=== PATIENT | male | born 1985 | race Caucasian/White ===

== ENCOUNTER 2019-01-02 14:49 | Emergency (ER) | payer BC, MEDICAID ==
[2019-01-02] MEDS ORDERED: ONDANSETRON HCL INJ/PF 4 MG/2 ML SDV IV ONE (15:58)
--- NOTE | 2019-01-02 15:58 | ER Document Report ---
ED Medical Screen (RME) - General Chief Complaint: Headache Stated Complaint: HEADACHE Time Seen by Provider: 01/02/19 15:49 Primary Care Provider: DAVID HOPPER [Primary Care Provider] - Follow up as needed Mode of Arrival: Ambulatory Information source: Patient Notes: Patient is a 33-year-old male presented to the emergency department chief complaint of headache that is been lasting for approximately 2 weeks. Patient does report history of headaches but is never had one last this long. Patient describes this as a sudden onset headache that reached max intensity within a few minutes. Patient does report headache has been ongoing for 2 weeks. He did state that one time it did resolve and that was after seeing an urgent care provider and given a dose of Toradol. Headache resolved at that time for approximately 10 to 12 hours and then resumed with full force. Patient reports photophobia, denies any neck pain, patient has full range of motion of his neck and denies any fevers. Exam: Patient alert, oriented and in no acute distress. No nuchal rigidity noted. Patient spouse is at bedside, states that he is not acting per his usual, states he has not been to work in 2 weeks and states that he is never sick like this. I have greeted and performed a rapid initial assessment of this patient. A comprehensive ED assessment and evaluation of the patient, analysis of test results and completion of the medical decision making process will be conducted by additional ED providers. I have specifically instructed the patient or family members with the patient to immediately return to any nursing staff should anything change in the patient's condition or with their chief complaint. This medical record was dictated with voice recognizing software. There may be grammatical, syntax errors that are unintended. TRAVEL OUTSIDE OF THE [place] IN LAST 30 DAYS: No - Related Data Allergies/Adverse Reactions: No Known Allergies Allergy (Unverified 01/02/19 14:50) Past Medical History Renal/ Medical History: Denies: Hx Peritoneal Dialysis Physical Exam - Vital signs Vitals: Temp Pulse Resp BP Pulse Ox 98.4 F 64 16 167/102 H 95 01/02/19 14:55 01/02/19 14:55 01/02/19 14:55 01/02/19 14:55 01/02/19 14:55 Course - Vital Signs Vital signs: Temp Pulse Resp BP Pulse Ox 98.4 F 64 16 167/102 H 95 01/02/19 14:55 01/02/19 14:55 01/02/19 14:55 01/02/19 14:55 01/02/19 14:55 Doctor's Discharge - Discharge Referrals: RUCHI,NO [Primary Care Provider] - Follow up as needed
[2019-01-02 16:13] LABS: ABSOLUTE BASOPHILS # (AUTO) 0.1 10^3/uL (0.0-0.2); ABSOLUTE LYMPHOCYTES (AUTO) 0.8 10^3/uL (0.5-4.7); ABSOLUTE MONOCYTES (AUTO) 0.4 10^3/uL (0.1-1.4); ABSOLUTE NEUT (AUTO) 11.2 10^3/uL (1.7-8.2); BASOPHILS % (AUTO) 0.4 % (0-2); HEMATOCRIT 51.2 % (37.9-51.0); HEMOGLOBIN 17.3 g/dL (13.5-17.0); LYMPHOCYTES % (AUTO) 6.7 % (13-45); MEAN CORPUSCULAR HGB CONC 33.7 g/dL (32.0-36.0); MEAN CORPUSCULAR VOLUME 83 fl (80-97); MONOCYTES % (AUTO) 3.3 % (3-13); PLATELET COUNT 376 10^3/uL (150-450); RED BLOOD COUNT 6.18 10^6/uL (4.35-5.55); RED CELL DISTRIBUTION WIDTH 14.7 % (11.5-14.0); SEGMENTED NEUTROPHILS % (AUTO) 89.6 % (42-78); TOTAL CELLS COUNTED % (AUTO) 100 %; WHITE BLOOD COUNT 12.6 10^3/uL (4.0-10.5)
--- NOTE | 2019-01-02 16:26 | ER Document Report ---
Doctor's Note Notes: 01/02/19 16:24 Radiologist called with acute findings on patient's head CT, there is a large mass causing a midline shift and cerebral edema, formal report not available yet, patient upgraded to [facility] 1, charge nurse made aware of need for immediate bed placement.
--- NOTE | 2019-01-02 16:34 | RADIOLOGY REPORT (SQ) ---
EXAM DESCRIPTION: CT HEAD WITHOUT COMPLETED DATE/TIME: 01/02/2019 4:17 pm REASON FOR STUDY: MAE x2 weeks, worst ever COMPARISON: None. TECHNIQUE: Axial images acquired through the brain without intravenous contrast. Images reviewed wi th bone, brain and subdural windows. Additional sagittal and coronal reconstructions were generated. Images stored on PACS. All CT scanners at this facility use dose modulation, iterative reconstruction, and/or weight based d osing when appropriate to reduce radiation dose to as low as reasonably achievable (ALARA). [facility]: Dose Right [facility]: CareDose [facility]: Dose Right [facility]: Teradose 4D [facility]: [employer] RADIATION DOSE: CT Rad equipment meets quality standard of care and radiation dose reduction techniq ues were employed. CTDIvol: 53.2 mGy. DLP: 991 mGy-cm. mGy. LIMITATIONS: None. FINDINGS: In the right frontal brain parenchyma, an 8 cm AP x 6.5 cm transverse by 5.5 cm craniocaud ad low attenuation cystic mass is present with surrounding vasogenic edema. There is significant loc al mass effect with effacement of the right frontal horn lateral ventricle. There is 1.5 cm right to left subfalcine shift at the level of the foramina of [place], and enlargement of the temporal horn le ft lateral ventricle worrisome for entrapment. Effacement of the basilar cisterns around the brainst em on axial images 12-17. No superimposed acute hemorrhage. Findings are worrisome for a large righ t frontal primary brain tumor. This report was called as a critical finding to Stacie Mckeon in the e mergency room, 1622 hours 01/02/2019. VENTRICLES: Effacement of the right frontal horn lateral ventricle, dilatation of the left lateral ve ntricle temporal horn worrisome for entrapment due to a right to left subfalcine shift. CEREBRUM: 8 x 6.5 x 5.5 cm mass in the right frontal lobe with right to left shift and significant lo ash mass effect. No acute superimposed hemorrhage. No CT evidence of acute large territory infarct. CEREBELLUM: No masses. No hemorrhage. No alteration of density. No evidence for acute infarction. EXTRAAXIAL SPACES: Effacement of the basilar cisterns around the brainstem ORBITS AND GLOBE: No intra- or extraconal masses. Normal contour of globe without masses. CALVARIUM: Old right frontal craniotomy PARANASAL SINUSES: No fluid or mucosal thickening. SOFT TISSUES: No mass or hematoma. OTHER: No other significant finding. IMPRESSION: Large right frontal brain mass with significant local mass effect and early entrapment o f the left lateral ventricle. Findings discussed with emergency room attending as above EVIDENCE OF ACUTE STROKE: NO. COMMENT: Pertinent findings on the imaging study reported as a CRITICAL RESULT to STACIE napier t16:22 on 01/02/2019. Category of Critical Result: Entrapment left lateral ventricle, significant right to left subfalcine shift, large right frontal brain tumor Quality ID # [id number]: Final reports with documentation of one or more dose reduction techniques (e.g., Au tomated exposure control, adjustment of the mA and/or kV according to patient size, use of iterative reconstruction technique) TECHNICAL DOCUMENTATION: JOB ID: [id number] [employer]- All Rights Reserved Reading location - IP/workstation name: [email or web address]
[2019-01-02 16:35] LABS: ALANINE AMINOTRANSFERASE 110 U/L (21-72); ALKALINE PHOSPHATASE 88 U/L (38-126); ANION GAP 11 (5-19); ASPARTATE AMINO TRANSFERASE 46 U/L (17-59); BILIRUBIN,DIRECT 0.3 mg/dL (0.0-0.4); BILIRUBIN,TOTAL 0.9 mg/dL (0.2-1.3); BLOOD UREA NITROGEN 15 mg/dL (7-20); CALCIUM 10.2 mg/dL (8.4-10.2); CARBON DIOXIDE 32 mmol/L (22-30); CHLORIDE 101 mmol/L (98-107); GLUCOSE 132 mg/dL (75-110); SODIUM 143.5 mmol/L (137-145); TOTAL PROTEIN 7.9 g/dL (6.3-8.2)
--- NOTE | 2019-01-02 17:28 | ER Document Report ---
ED General - General Mode of Arrival: Ambulatory TRAVEL OUTSIDE OF THE [place] IN LAST 30 DAYS: No <INDIO GARCES - Last Filed: 01/02/19 20:22> <SULEIMAN REDMOND - Last Filed: 01/02/19 23:19> <DANE ETIENNE - Last Filed: 01/03/19 23:37> - General Chief Complaint: Headache Stated Complaint: HEADACHE Time Seen by Provider: 01/02/19 15:49 Primary Care Provider: DAVID HOPPER [NO LOCAL MD] - Follow up as needed Notes: 33-year-old male with remote history of a brain surgery when he was 1 years old from a 25 foot fall presents to the emergency department with chief complaint of severe headache and vomiting that is gotten progressively worse over the last 2 weeks. Patient also has associated photophobia but no vision changes or visual cuts. He said the vomiting has been intermittent but he had one episode yesterday and one episode today and the intensity of his headache increased prompting him to seek treatment. No fevers or chills, no neck stiffness, no acute shortness of breath or chest pain, no abdominal pain. No associated nausea with the vomiting. Radiologist called the provider in triage with a CT head result that did show a large 8 cm frontal mass and patient was brought directly back to the main emergency department and I immediately saw patient up on his arrival. (INDIO GARCES) - Related Data Allergies/Adverse Reactions: No Known Allergies Allergy (Unverified 01/02/19 14:50) Past Medical History - General Information source: Patient - Social History Smoking Status: Unknown if Ever Smoked Patient has suicidal ideation: No Patient has homicidal ideation: No Renal/ Medical History: Denies: Hx Peritoneal Dialysis <INDIO GARCES - Last Filed: 01/02/19 20:22> - General Information source: Patient, [facility] Records - Social History Smoking Status: Never Smoker Frequency of alcohol use: None Drug Abuse: None Lives with: Family Family History: Reviewed & Not Pertinent Patient has suicidal ideation: No Patient has homicidal ideation: No <DANE ETIENNE - Last Filed: 01/03/19 23:37> Review of Systems - Review of Systems Constitutional: See HPI EENT: See HPI Cardiovascular: See HPI Respiratory: See HPI Gastrointestinal: See HPI Genitourinary: No symptoms reported Male Genitourinary: No symptoms reported Musculoskeletal: No symptoms reported Skin: No symptoms reported Hematologic/Lymphatic: No symptoms reported Neurological/Psychological: See HPI <INDIO GARCES - Last Filed: 01/02/19 20:22> Physical Exam <INDIO GARCES - Last Filed: 01/02/19 20:22> - Vital signs Vitals: Temp Pulse Resp BP Pulse Ox 98.4 F 64 16 167/102 H 95 01/02/19 14:55 01/02/19 14:55 01/02/19 14:55 01/02/19 14:55 01/02/19 14:55 - Notes Notes: PHYSICAL EXAMINATION: Reviewed vital signs and charting by RN GENERAL: Alert, interacts well. No acute distress. HEAD: Normocephalic, atraumatic. EYES: Pupils equal and round. Extraocular movements intact. ENT: Oral mucosa moist, tongue midline. NECK: Full range of motion. Trachea midline. LUNGS: Clear to auscultation bilaterally, no wheezes, rales, or rhonchi. No respiratory distress. HEART: Regular rate and rhythm. No murmur ABDOMEN: soft, non-tender. No distention. Bowel sounds present EXTREMITIES: Moves all 4 extremities spontaneously. No edema, No cyanosis. NEURO: A &O X 3, normal speech, normal gailt, PERRL, EOMI, SILT, follows commands in all 4 extremities, no gross abnormalities of cranial nerves, no focal neuro deficits, no pronator drift, [id number] testing normal, rapid alternating hand movements normal, [id number] normal, home visitor strength 5/5 bilateral, 5/5 strength in both proximal and distal upper and lower extremities. No visual field cuts PSYCH: Normal affect, normal mood. SKIN: Warm, dry, normal turgor. No rashes or lesions noted. (INDIO GARCES) Course - Laboratory Result Diagrams: 01/02/19 16:01 01/02/19 16:01 <INDIO GARCES - Last Filed: 01/02/19 20:22> - Laboratory Result Diagrams: 01/02/19 16:01 01/02/19 16:01 <SULEIMAN REDMOND - Last Filed: 01/02/19 23:19> - Laboratory Result Diagrams: 01/02/19 16:01 01/02/19 16:01 <DANE ETIENNE - Last Filed: 01/03/19 23:37> - Re-evaluation Re-evalutation: 01/02/19 20:18 Late entry: I immediately assessed the patient upon being moved to the main emergency department. He was alert and oriented x4, ambulating without difficulty. Patient had a completely normal neurologic exam, no focal deficits, no visual field cuts, no behavioral changes. CT head showed a large frontal mass with midline shift and associated vasogenic edema. [facility] and talked to Jad at the transfer center. He made contact with the neurosurgeon, Dr. Bubba Yi, who accepted the patient for transfer. Images have been pushed over and a face sheet has been sent there as well. Patient has a bed assigned and we are awaiting transport. Warm bedside handoff conducted-ABHI Redmond. Patient is currently stable. He has received Fioricet for headache. (INDIO GARCES) 01/02/19 23:19 Patient reevaluated at bedside again. He had been complaining of a mild discomfort in the head on previous evaluation by me, he was given dexamethasone because of headache and intracranial mass, after this his headache completely resolved. He has no current complaints. He is sitting up in the bed and well appearing. No significant change from prior. Stable for transport. (SULEIMAN REDMOND) - Vital Signs Vital signs: Temp Pulse Resp BP Pulse Ox 98.3 F 64 25 H 155/89 H 93 01/02/19 22:42 01/02/19 14:55 01/02/19 20:00 01/02/19 23:01 01/02/19 23:01 - Laboratory Laboratory results interpreted by me: 01/02/19 01/02/19 16:01 16:01 WBC 12.6 H RBC 6.18 H Hgb 17.3 H Hct 51.2 H RDW 14.7 H Seg Neutrophils % 89.6 H Lymphocytes % 6.7 L Absolute Neutrophils 11.2 H Carbon Dioxide 32 H Glucose 132 H ALT 110 H Discharge <INDIO GARCES - Last Filed: 01/02/19 20:22> <SULEIMAN REDMOND - Last Filed: 01/02/19 23:19> <DANE ETIENNE - Last Filed: 01/03/19 23:37> - Discharge Clinical Impression: Frontal mass of brain, Vasogenic cerebral edema Condition: Stable Disposition: Sophia Referrals: LOCALMD,NO [NO LOCAL MD] - Follow up as needed
[2019-01-02] MEDS ORDERED: LEVETIRACETAM 1000 MG/NACL-ISO 1,000 MG/100 ML RTUPB IV ONE (18:12)
[2019-01-02] MEDS ORDERED: BUTALB/ACETAMINOPHEN/CAFFEINE 1 TAB EACH PO ONE (19:04)
[2019-01-02] MEDS ORDERED: DEXAMETHASONE SOD PHOS INJ 10 MG/1 ML VIAL IV ONE (20:58)
[2019-01-02 23:06] VITALS: BP 155/89
== END 2019-01-02 23:25 | disposition short-term general hospital (02) ==
LOC: ER 14:49
DX: G93.9 Disorder of brain, unspecified (principal); G93.6 Cerebral edema; R51 Headache; R11.11 Vomiting without nausea; H53.149 Visual discomfort, unspecified
CPT/HCPCS: 99285; 96375; 96365; 36415; 85025; 80053; 70450; J3490; J2405; J1100; J1953

== ENCOUNTER 2019-01-18 08:31 | Observation (INO) | payer BC ==
[2019-01-18 08:51] LABS: ABSOLUTE BASOPHILS # (AUTO) 0.1 10^3/uL (0.0-0.2); ABSOLUTE EOSINOPHILS # (AUTO) 0.1 10^3/uL (0.0-0.6); ABSOLUTE LYMPHOCYTES (AUTO) 3.1 10^3/uL (0.5-4.7); ABSOLUTE MONOCYTES (AUTO) 1.5 10^3/uL (0.1-1.4); ABSOLUTE NEUT (AUTO) 12.2 10^3/uL (1.7-8.2); BASOPHILS % (AUTO) 0.7 % (0-2); EOSINOPHILS % (AUTO) 0.6 % (0-6); HEMATOCRIT 45.1 % (37.9-51.0); HEMOGLOBIN 15.1 g/dL (13.5-17.0); LYMPHOCYTES % (AUTO) 18.1 % (13-45); MEAN CORPUSCULAR HEMOGLOBIN 28.3 pg (27.0-33.4); MEAN CORPUSCULAR HGB CONC 33.5 g/dL (32.0-36.0); MEAN CORPUSCULAR VOLUME 85 fl (80-97); MONOCYTES % (AUTO) 9.1 % (3-13); PLATELET COUNT 345 10^3/uL (150-450); RED BLOOD COUNT 5.33 10^6/uL (4.35-5.55); RED CELL DISTRIBUTION WIDTH 14.9 % (11.5-14.0); SEGMENTED NEUTROPHILS % (AUTO) 71.5 % (42-78); TOTAL CELLS COUNTED % (AUTO) 100 %; WHITE BLOOD COUNT 17.1 10^3/uL (4.0-10.5)
--- NOTE | 2019-01-18 09:06 | RADIOLOGY REPORT (SQ) ---
EXAM DESCRIPTION: CHEST SINGLE VIEW COMPLETED DATE/TIME: 01/18/2019 8:54 am REASON FOR STUDY: SOB COMPARISON: None. EXAM PARAMETERS: NUMBER OF VIEWS: One view. TECHNIQUE: Single frontal radiographic view of the chest acquired. RADIATION DOSE: NA LIMITATIONS: None. FINDINGS: LUNGS AND PLEURA: Faint linear densities in the lung bases. Elevated left hemidiaphragm. MEDIASTINUM AND HILAR STRUCTURES: No masses. Contour normal. HEART AND VASCULAR STRUCTURES: Heart normal in size. Normal vasculature. BONES: No acute findings. HARDWARE: None in the chest. OTHER: No other significant finding. IMPRESSION: ELEVATED LEFT HEMIDIAPHRAGM. BASILAR ATELECTASIS/SCARRING. TECHNICAL DOCUMENTATION: JOB ID: [id number] [employer]- All Rights Reserved Reading location - IP/workstation name: [email or web address]
[2019-01-18 09:12] LABS: ALANINE AMINOTRANSFERASE 118 U/L (21-72); ALBUMIN 4.1 g/dL (3.5-5.0); ALKALINE PHOSPHATASE 92 U/L (38-126); ANION GAP 9 (5-19); ASPARTATE AMINO TRANSFERASE 52 U/L (17-59); BILIRUBIN,DIRECT 0.3 mg/dL (0.0-0.4); BLOOD UREA NITROGEN 15 mg/dL (7-20); CALCIUM 9.6 mg/dL (8.4-10.2); CARBON DIOXIDE 29 mmol/L (22-30); CHLORIDE 100 mmol/L (98-107); GLUCOSE 111 mg/dL (75-110); POTASSIUM 4.5 mmol/L (3.6-5.0); TOTAL PROTEIN 6.9 g/dL (6.3-8.2)
[2019-01-18] MEDS ORDERED: NORMAL SALINE 1000 ML 1,000 ML IV ONE (09:15)
--- NOTE | 2019-01-18 09:55 | ER Document Report ---
Entered by TUAN TORRES SCRIBE 01/18/19 0855 Acting as scribe for:STEVE ANDERSON MD ED Respiratory Problem - General Chief Complaint: Shortness Of Breath Stated Complaint: SHORTNESS OF BREATH Time Seen by Provider: 01/18/19 08:45 Primary Care Provider: ITA MONCADA MD [Primary Care Provider] - Follow up as needed Mode of Arrival: Medic Information source: Patient, [facility] Records Notes: Patient is a 33-year-old male with medical history significant for large right frontal brain mass which was removed on 01/04/2019 at [facility] who presents to the emergency department today with complaints of shortness of breath. Patient states last night he developed pain in the area of his left shoulder blade. Patient states he attributed this pain to the way he was sitting yesterday evening, stating he was sitting oddly on a pillow. Patient states he took Tylenol last night and went to bed and at that time he had no shortness of breath yet. Patient states that this morning when he woke up he was very short of breath and he continues to have this left sided scapular pain. Patient states the pain is exacerbated with deep breathing. Patient states that he has had a cough that has lingered for over 1 month but it is not changed. TRAVEL OUTSIDE OF THE [place] IN LAST 30 DAYS: No - Related Data Allergies/Adverse Reactions: No Known Allergies Allergy (Unverified 01/02/19 14:50) Past Medical History - General Information source: Patient, [facility] Records - Social History Smoking Status: Never Smoker Cigarette use (# per day): No Frequency of alcohol use: None Drug Abuse: None Lives with: Family Family History: Reviewed & Not Pertinent Past Surgical History: Reports: Hx Neurologic Surgery - Removal of large right frontal brain mass on 01/04/2019 Review of Systems - Review of Systems Constitutional: No symptoms reported EENT: No symptoms reported Cardiovascular: No symptoms reported Respiratory: See HPI, Cough, Short of breath, Other - pain in the area of the left scapula Gastrointestinal: No symptoms reported Genitourinary: No symptoms reported Male Genitourinary: No symptoms reported Musculoskeletal: No symptoms reported Skin: No symptoms reported Hematologic/Lymphatic: No symptoms reported Neurological/Psychological: No symptoms reported -: Yes All other systems reviewed and negative Physical Exam - Vital signs Vitals: Resp Pulse Ox 28 H 96 01/18/19 08:37 01/18/19 08:37 - Notes Notes: Physical Exam: General: Alert, appears short of breath. HEENT: Transverse coronal scalp surgery site has sutures in place from tumor removal on 01/02/2019, there is swelling surrounding wound which is expected. PERRL. Extraocular movements intact. Oropharynx clear. Neck: Supple. Non-tender. Respiratory: Tachypneic. Hypoxic with an oxygen saturation in the lower 90s on 2L via nasal cannula. Clear and equal breath sounds bilaterally. Cardiovascular: Tachycardic into the 140s, regular rhythm. Abdominal: Normal Inspection. Non-tender. No distension. Normal Bowel Sounds. Back: Non-tender. Palpation of the left scapular area does not reproduce the patient's pain, states the pain feels deeper inside which is consistent with pleuritic pain. Deep inhalation does exacerbate the pain. Extremities: Moves all four extremities. Upper extremities: Normal inspection. Normal ROM. Lower extremities: Normal inspection. No edema. Normal ROM. Neurological: Normal cognition. AAOx4. Normal speech. Psychological: Normal affect. Normal Mood. Skin: Diaphoretic and very warm to the touch. Normal color. Course - Vital Signs Vital signs: Temp Pulse Resp BP Pulse Ox 23 H 149/133 H 92 01/18/19 08:45 01/18/19 08:45 01/18/19 08:47 - Laboratory Result Diagrams: 01/18/19 08:40 01/18/19 08:40 Laboratory results interpreted by me: 01/18/19 01/18/19 01/18/19 08:40 08:40 08:40 WBC 17.1 H RDW 14.9 H Absolute Neutrophils 12.2 H Absolute Monocytes 1.5 H D-Dimer 0.93 H Carbonic Acid ABG pCO2 ABG pO2 ABG HCO3 ABG Total CO2 ABG O2 Saturation Glucose 111 H ALT 118 H 01/18/19 09:45 WBC RDW Absolute Neutrophils Absolute Monocytes D-Dimer Carbonic Acid 1.38 H ABG pCO2 45.8 H ABG pO2 64.2 L ABG HCO3 26.5 H ABG Total CO2 27.9 H ABG O2 Saturation 92.0 L Glucose ALT - Diagnostic Test Radiology reviewed: Image reviewed, Reports reviewed - Chest x-ray shows elevated left hemidiaphragm with basilar atelectasis versus scarring. CTA chest shows scattered atelectasis in the lung bases with suboptimal Tory effort. No pulmonary emboli, no definitely pneumonias, no heart failure. - EKG Interpretation by Me EKG shows normal: Sinus rhythm, [place], Intervals, QRS Complexes, ST-T Waves Rate: Tachycardia - 136 - Consults Dr. Garsia Time consulted: 11:08 Consulted provider: will come to ER Critical Care Note - Critical Care Note Total time excluding time spent on procedures (mins): 45 Discharge - Discharge Clinical Impression: Hypoxia, Tachycardia, Diaphoresis Dyspnea Qualifiers: Dyspnea type: shortness of breath Qualified Code(s): R06.02 - Shortness of lizz ath Pneumonia Qualifiers: Pneumonia type: due to unspecified organism Laterality: bilateral Lung location: lower lobe of lung Qualified Code(s): J18.1 - Lobar pneumonia, uns pecified organism Leukocytosis Qualifiers: Leukocytosis type: unspecified Qualified Code(s): D72.829 - Elevated white blood cell count, unspecified Condition: Fair Disposition: ADMITTED INPATIENT Admitting Provider: Ady (Hospitalist) Unit Admitted: IMCU Referrals: ITA MONCADA MD [Primary Care Provider] - Follow up as needed Scribe Attestation: 01/18/19 09:28 I personally performed the services described in the documentation, reviewed and edited the documentation which was dictated to the scribe in my presence, and it accurately records my words and actions. I personally performed the services described in the documentation, reviewed and edited the documentation which was dictated to the scribe in my presence, and it accurately records my words and actions.
[2019-01-18 10:05] LABS: ARTERIAL BLOOD BASE EXCESS 0.8 mmol/L; ARTERIAL BLOOD H2CO3 1.38 mmol/L (1.05-1.35); ARTERIAL BLOOD HCO3 26.5 mmol/L (20-24); ARTERIAL BLOOD PCO2 45.8 mmHg (35-45); ARTERIAL BLOOD PH 7.38 (7.35-7.45); ARTERIAL BLOOD PO2 64.2 mmHg (80-100); ARTERIAL BLOOD TOTAL CO2 27.9 mmol/L (23-27)
[2019-01-18 10:07] LABS: ARTERIAL BLOOD FIO2 3L
--- NOTE | 2019-01-18 10:31 | RADIOLOGY REPORT (SQ) ---
EXAM DESCRIPTION: CTA CHEST COMPLETED DATE/TIME: 01/18/2019 10:08 am REASON FOR STUDY: Postop, malignancy, acute dyspneahypoxia COMPARISON: None. TECHNIQUE: CT scan of the chest performed using helical scanning technique with dynamic intravenous contrast injection. Images reviewed with lung, soft tissue and bone windows. Reconstructed coronal and sagittal MPR images reviewed. Additional 3 dimensional post-processing performed to develop Maximal Intensity Projection images ([place] P). All images stored on PACS. All CT scanners at this facility use dose modulation, iterative reconstruction, and/or weight based d osing when appropriate to reduce radiation dose to as low as reasonably achievable (ALARA). [facility]: Dose Right [facility]: CareDose [facility]: Dose Right [facility]: Teradose 4D [facility]: [employer] CONTRAST TYPE AND DOSE: contrast/concentration: Isovue 350.00 mg/ml; Total Contrast Delivered: 75.0 ml; Total Saline Delivered: 80.0 ml Contrast bolus adequate for pulmonary arteries and aorta. RENAL FUNCTION: BUN 15 creatinine 0.1. RADIATION DOSE: CT Rad equipment meets quality standard of care and radiation dose reduction techniq ues were employed. CTDIvol: 19.8 - 37.5 mGy. DLP: 1244 mGy-cm. . LIMITATIONS: Mild motion artifact. FINDINGS: LUNGS AND PLEURA: Low lung volumes. Scattered linear markings in the lung bases No masses , infiltrates, or pneumothorax. No pleural effusions or pleural calcifications. AORTA AND GREAT VESSELS: No aneurysm. No dissection. HEART: No pericardial effusion. No significant coronary artery calcifications. PULMONARY ARTERIES: No emboli visualized in the main pulmonary arteries or the segmental branches. HILAR AND MEDIASTINAL STRUCTURES: No identified masses or abnormal nodes. HARDWARE: None in the chest. UPPER ABDOMEN: No significant findings. Limited exam. THYROID AND OTHER SOFT TISSUES: No masses. No adenopathy. BONES: No acute or significant finding. 3D MIPS: Confirm above findings. OTHER: No other significant finding. IMPRESSION: 1. NORMAL CTA OF THE CHEST. NO PULMONARY EMBOLI. 2. SUBOPTIMAL INSPIRATORY EFFORT. SCATTERED ATELECTASIS IN THE LUNG BASES. COMMENT: Quality ID # [id number]: Final reports with documentation of one or more dose reduction techniques (e.g., Automated exposure control, adjustment of the mA and/or kV according to patient size, use of iterative reconstruction technique) TECHNICAL DOCUMENTATION: JOB ID: [id number] [employer]- All Rights Reserved Reading location - IP/workstation name: [email or web address]
[2019-01-18] MEDS ORDERED: LEVOFLOXACIN 750 MG/D5W RTU 750 MG/150 ML RTUPB IV ONE (10:59)
[2019-01-18 11:48] LABS: APPEARANCE,URINE CLEAR; BILIRUBIN,URINE NEGATIVE (NEGATIVE); COLOR,URINE YELLOW; GLUCOSE, URINE NEGATIVE (NEGATIVE); KETONES,URINE NEGATIVE (NEGATIVE); LEUKOCYTE ESTERASE,URINE NEGATIVE (NEGATIVE); NITRITE,URINE NEGATIVE (NEGATIVE); PROTEIN,URINE NEGATIVE (NEGATIVE); URINE SPECIFIC GRAVITY 1.035; UROBILINOGEN,URINE NEGATIVE mg/dL (<2.0)
[2019-01-18] MEDS ORDERED: ACETAMINOPHEN 325 MG TABLET PO PRN (13:38)
[2019-01-18] MEDS ORDERED: PROMETHAZINE HCL INJ 25 MG/1 ML VIAL IV PRN (13:38)
[2019-01-18] MEDS ORDERED: TEMAZEPAM 15 MG CAPSULE PO PRN (13:38)
[2019-01-18] MEDS ORDERED: OXYCODONE-ACETAMINOPHEN 5-325 MG TABLET PO PRN (13:38)
[2019-01-18] MEDS ORDERED: ONDANSETRON HCL INJ/PF 4 MG/2 ML SDV IV PRN (13:38)
--- NOTE | 2019-01-18 14:14 | PDOC H&P ---
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 She woke up with left-sided shoulder pain which she attributed to his sleeping position, took some Tylenol, went back to bed, also noted to have small shortness of breath in the morning. Shoulder pain is sharp, comes on randomly. No alleviating or exacerbating factor identified. Denies any headache, numbness tingling, vision changes, nausea vomiting, chest pain, abdominal pain, constipation or any urinary symptoms. CTA negative for any acute abnormalities. ABG positive for mild hypoxemia. CBC positive for leukocytosis. Social History Lives with: Family Smoking Status: Never Smoker - Advance Directive Resuscitation Status: Full Code Family History Family History: Reviewed & Not Pertinent Parental Family History Reviewed: Yes Children Family History Reviewed: Yes Sibling(s) Family History Reviewed.: Yes Medication/Allergy Home Medications: Benzonatate [Tessalon Perle 100 mg Capsule] 100 mg PO Q8HP PRN 01/18/19 Cetirizine HCl [Zyrtec] 10 mg PO DAILY 01/18/19 Dexamethasone 4 mg PO DAILY 01/18/19 Famotidine [Pepcid 20 mg Tablet] 20 mg PO BID 01/18/19 Fluticasone Propionate [Flonase Nasal [place] 50 Mcg/[place] 16 gm] 2 sprays NASL DAILY 01/18/19 Lisinopril [Prinivil 10 mg Tablet] 10 mg PO DAILY 01/18/19 Sennosides [Senna] 17.2 mg PO DAILY 01/18/19 Allergies/Adverse Reactions: No Known Allergies Allergy (Unverified 01/02/19 14:50) Review of Systems Review of Systems: as per hpi Physical Exam Vital Signs: Temp Pulse Resp BP Pulse Ox 98.5 F 114 H 20 153/93 H 93 01/18/19 13:38 01/18/19 13:38 01/18/19 13:38 01/18/19 13:38 01/18/19 13:38 General appearance: PRESENT: no acute distress, obese, well-developed, well- nourished Head exam: PRESENT: atraumatic, normocephalic, other - Horizontal extensive postsurgical wound with shaila in place. Mild swelling at the surgical area, however no erythema, tenderness, or any sign of infection. Eye exam: PRESENT: conjunctiva pink, EOMI, PERRLA. ABSENT: scleral icterus Ear exam: PRESENT: normal external ear exam Mouth exam: PRESENT: moist, tongue midline Neck exam: ABSENT: carotid bruit, JVD, lymphadenopathy, thyromegaly Adult Head Front/Back Image: 1 - surgical wound with shaila Respiratory exam: PRESENT: clear to auscultation tracy. ABSENT: rales, rhonchi, wheezes Cardiovascular exam: PRESENT: RRR. ABSENT: diastolic murmur, rubs, systolic m urmur Pulses: PRESENT: normal dorsalis pedis pul Vascular exam: PRESENT: normal capillary refill GI/Abdominal exam: PRESENT: normal bowel sounds, soft. ABSENT: distended, guarding, mass, organolmegaly, rebound, tenderness Rectal exam: PRESENT: deferred Extremities exam: PRESENT: full ROM. ABSENT: calf tenderness, clubbing, pedal edema Neurological exam: PRESENT: alert, awake, oriented to person, oriented to place, oriented to time, oriented to situation, CN II-XII grossly intact, other. ABSENT: motor sensory deficit Psychiatric exam: PRESENT: appropriate affect, normal mood. ABSENT: homicidal ideation, suicidal ideation Skin exam: PRESENT: dry, intact, warm. ABSENT: cyanosis, rash Results Laboratory Results: 01/18/19 08:40 01/18/19 08:40 01/18/19 01/18/19 01/18/19 08:40 08:40 09:06 WBC 17.1 H RBC 5.33 Hgb 15.1 Hct 45.1 MCV 85 MCH 28.3 MCHC 33.5 RDW 14.9 H Plt Count 345 Seg Neutrophils % 71.5 Lymphocytes % 18.1 Monocytes % 9.1 Eosinophils % 0.6 Basophils % 0.7 Absolute Neutrophils 12.2 H Absolute Lymphocytes 3.1 Absolute Monocytes 1.5 H Absolute Eosinophils 0.1 Absolute Basophils 0.1 Carbonic Acid Cancelled HCO3/H2CO3 Ratio Cancelled ABG pH Cancelled ABG pCO2 Cancelled ABG pO2 Cancelled ABG HCO3 Cancelled ABG O2 Saturation Cancelled ABG Base Excess Cancelled FiO2 Cancelled Sodium 138.2 Potassium 4.5 Chloride 100 Carbon Dioxide 29 Anion Gap 9 BUN 15 Creatinine 0.81 Est GFR ( Amer) > 60 Est GFR (Non-Af Amer) > 60 Glucose 111 H Calcium 9.6 Total Bilirubin 1.0 AST 52 ALT 118 H Alkaline Phosphatase 92 Total Protein 6.9 Albumin 4.1 Urine Color Urine Appearance Urine pH Ur Specific [place] Urine Protein Urine Glucose (UA) Urine Ketones Urine Blood Urine Nitrite Ur Leukocyte Esterase Urine WBC (Auto) Urine RBC (Auto) 01/18/19 01/18/19 09:45 11:30 WBC RBC Hgb Hct MCV MCH MCHC RDW Plt Count Seg Neutrophils % Lymphocytes % Monocytes % Eosinophils % Basophils % Absolute Neutrophils Absolute Lymphocytes Absolute Monocytes Absolute Eosinophils Absolute Basophils Carbonic Acid 1.38 H HCO3/H2CO3 Ratio 19:1 ABG pH 7.38 ABG pCO2 45.8 H ABG pO2 64.2 L ABG HCO3 26.5 H ABG O2 Saturation 92.0 L ABG Base Excess 0.8 FiO2 3L Sodium Potassium Chloride Carbon Dioxide Anion Gap BUN Creatinine Est GFR ( Amer) Est GFR (Non-Af Amer) Glucose Calcium Total Bilirubin AST ALT Alkaline Phosphatase Total Protein Albumin Urine Color YELLOW Urine Appearance CLEAR Urine pH 5.0 Ur Specific [place] 1.035 Urine Protein NEGATIVE Urine Glucose (UA) NEGATIVE Urine Ketones NEGATIVE Urine Blood NEGATIVE Urine Nitrite NEGATIVE Ur Leukocyte Esterase NEGATIVE Urine WBC (Auto) 1 Urine RBC (Auto) 1 Impressions: Chest X-Ray 01/18/19 08:33 IMPRESSION: ELEVATED LEFT HEMIDIAPHRAGM. BASILAR ATELECTASIS/SCARRING. Chest/Abdomen CTA 01/18/19 09:09 IMPRESSION: 1. NORMAL CTA OF THE CHEST. NO PULMONARY EMBOLI. 2. SUBOPTIMAL INSPIRATORY EFFORT. SCATTERED ATELECTASIS IN THE LUNG BASES. Assessment and Plan - Diagnosis (1) Acute and chronic respiratory failure with hypoxia Is this a current diagnosis for this admission?: Yes Plan: CXR, CTA negative. However patient is high risk for hospital-acquired pneumonia and bacteremia due to recent hospitalization and extensive surgery. ABG: pH 7.38, PCO2 45.8, PO2 64.2 ,3 L NC. Admit to IMCU, empiric IV antibiotics, PRN BiPAP, duo nebs, blood and sputum culture. Follow-up blood and sputum culture. (2) Obesity Is this a current diagnosis for this admission?: Yes Plan: Diet and lifestyle modification recommended. (3) Leukocytosis Qualifiers: Leukocytosis type: unspecified Qualified Code(s): D72.829 - Elevated white blood cell count, unspecified Is this a current diagnosis for this admission?: Yes Plan: Broad-spectrum IV antibiotics. Follow-up culture. As per #1. (4) Hx of brain surgery Is this a current diagnosis for this admission?: Yes Plan: Recent brain surgery on 01/04/2019 for removal of frontal lobe mass. As per patient results of biopsy pending. Outpatient neurology follow-up. Patient neurosurgery follow-up. Monitor for fall, aspiration, seizure precautions. Continue wound care. (5) Hypertension Is this a current diagnosis for this admission?: Yes Plan: Restart home meds. Monitor vitals. PRN hydralazine. Adjust meds as needed. Outpatient PCP follow-up.
[2019-01-18] MEDS ORDERED: BENZONATATE 100 MG CAPSULE PO PRN (14:16)
[2019-01-18] MEDS ORDERED: DEXAMETHASONE 4 MG PO SCH (14:30)
[2019-01-18] MEDS: LISINOPRIL 10 MG TABLET PO SCH (15:39)
[2019-01-18] MEDS: HEPARIN SOD (PORCINE) 5,000 UNIT/ML 1 ML VIAL SUBCUT SCH ×3 (15:39→21:08)
[2019-01-18] MEDS: DEXAMETHASONE 4 MG TABLET PO SCH ×2 (15:39→15:46)
--- NOTE | 2019-01-18 16:03 | EKG REPORT ---
SEVERITY:- OTHERWISE NORMAL ECG - SINUS TACHYCARDIA : Confirmed by: Kevin Shanks MD 18-Jan-2019 16:02:38
[2019-01-18] MEDS: DOCUSATE SODIUM 100 MG CAPSULE PO SCH (18:45)
[2019-01-18] MEDS ORDERED: DEXAMETHASONE 0.5 MG TABLET PO ONE (19:00)
[2019-01-18] MEDS ORDERED: DEXAMETHASONE 0.5 MG TABLET ONE (20:39)
[2019-01-18] MEDS: IPRATROPIUM/ALBUTEROL 0.5-2.5 MG/3 ML AMPUL NEB SCH (20:39)
[2019-01-18] MEDS: FAMOTIDINE 20 MG TABLET PO SCH (21:08)
[2019-01-19] MEDS: HEPARIN SOD (PORCINE) 5,000 UNIT/ML 1 ML VIAL SUBCUT SCH ×3 (05:24→21:15)
[2019-01-19 06:36] LABS: ABSOLUTE LYMPHOCYTES (AUTO) 0.8 10^3/uL (0.5-4.7); ABSOLUTE MONOCYTES (AUTO) 1.1 10^3/uL (0.1-1.4); ABSOLUTE NEUT (AUTO) 11.3 10^3/uL (1.7-8.2); BASOPHILS % (AUTO) 0.1 % (0-2); HEMATOCRIT 41.3 % (37.9-51.0); HEMOGLOBIN 13.8 g/dL (13.5-17.0); LYMPHOCYTES % (AUTO) 6.3 % (13-45); MEAN CORPUSCULAR HEMOGLOBIN 28.6 pg (27.0-33.4); MEAN CORPUSCULAR HGB CONC 33.4 g/dL (32.0-36.0); MEAN CORPUSCULAR VOLUME 86 fl (80-97); MONOCYTES % (AUTO) 8.2 % (3-13); PLATELET COUNT 311 10^3/uL (150-450); RED BLOOD COUNT 4.83 10^6/uL (4.35-5.55); RED CELL DISTRIBUTION WIDTH 15.5 % (11.5-14.0); SEGMENTED NEUTROPHILS % (AUTO) 85.4 % (42-78); TOTAL CELLS COUNTED % (AUTO) 100 %; WHITE BLOOD COUNT 13.2 10^3/uL (4.0-10.5)
[2019-01-19 06:56] LABS: ANION GAP 9 (5-19); BLOOD UREA NITROGEN 18 mg/dL (7-20); CALCIUM 9.7 mg/dL (8.4-10.2); CARBON DIOXIDE 29 mmol/L (22-30); CHLORIDE 102 mmol/L (98-107); GLUCOSE 125 mg/dL (75-110); POTASSIUM 4.9 mmol/L (3.6-5.0)
[2019-01-19] MEDS: IPRATROPIUM/ALBUTEROL 0.5-2.5 MG/3 ML AMPUL NEB SCH ×3 (08:00→20:05)
[2019-01-19] MEDS ORDERED: (PENDING PHARMACY ID) (Sennosides [Senna] 17.2 MG) PO SCH (10:00)
[2019-01-19] MEDS ORDERED: (PENDING PHARMACY ID) (Cetirizine Hcl [Zyrtec] 10 MG) PO SCH (10:00)
--- NOTE | 2019-01-19 10:13 | PDOC PROGRESS REPORT ---
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 She woke up with left-sided shoulder pain which she attributed to his sleeping position, took some Tylenol, went back to bed, also noted to have small shortness of breath in the morning. Shoulder pain is sharp, comes on randomly. No alleviating or exacerbating factor identified. Denies any headache, numbness tingling, vision changes, nausea vomiting, chest pain, abdominal pain, constipation or any urinary symptoms. CTA negative for any acute abnormalities. ABG positive for mild hypoxemia. CBC positive for leukocytosis. 01/17/2019. No acute events overnight patient has been on supplemental oxygen with SPO2 WNL. Does not appear to be in any apparent distress. Denies any fever, chills, nausea, vomiting, diarrhea, constipation or any urinary symptoms. P.o. tolerant, having normal bowel and bladder movements. Ambulatory. Will discharge home tomorrow. Reason For Visit: Shortness of breath. Physical Exam Vital Signs: Temp Pulse Resp BP Pulse Ox 98.2 F 91 17 131/79 H 94 01/19/19 07:27 01/19/19 08:00 01/19/19 08:00 01/19/19 07:27 01/19/19 08:00 Intake & Output 01/18/19 01/19/19 01/20/19 06:59 06:59 06:59 Intake Total 500 Output Total 3 Balance 497 Weight 130.8 kg General appearance: PRESENT: no acute distress, morbidly obese, well-developed, well-nourished Head exam: PRESENT: atraumatic, normocephalic Eye exam: PRESENT: conjunctiva pink, EOMI, PERRLA. ABSENT: scleral icterus Ear exam: PRESENT: normal external ear exam Mouth exam: PRESENT: moist, tongue midline Neck exam: ABSENT: carotid bruit, JVD, lymphadenopathy, thyromegaly Respiratory exam: PRESENT: clear to auscultation tracy. ABSENT: rales, rhonchi, wheezes Cardiovascular exam: PRESENT: RRR. ABSENT: diastolic murmur, rubs, systolic murmur Pulses: PRESENT: normal dorsalis pedis pul Vascular exam: PRESENT: normal capillary refill GI/Abdominal exam: PRESENT: normal bowel sounds, soft. ABSENT: distended, guarding, mass, organolmegaly, rebound, tenderness Rectal exam: PRESENT: deferred Extremities exam: PRESENT: full ROM. ABSENT: calf tenderness, clubbing, pedal edema Neurological exam: PRESENT: alert, awake, oriented to person, oriented to place, oriented to time, oriented to situation, CN II-XII grossly intact. ABSENT: motor sensory deficit Psychiatric exam: PRESENT: appropriate affect, normal mood. ABSENT: homicidal ideation, suicidal ideation Skin exam: PRESENT: dry, intact, warm, other - Postsurgical wound over frontal head, wound looks clean, no sign of infection.. ABSENT: cyanosis, rash Results Laboratory Results: 01/19/19 05:54 01/19/19 05:54 01/18/19 01/19/19 01/19/19 11:30 05:54 05:54 WBC 13.2 H RBC 4.83 Hgb 13.8 Hct 41.3 MCV 86 MCH 28.6 MCHC 33.4 RDW 15.5 H Plt Count 311 Seg Neutrophils % 85.4 H Lymphocytes % 6.3 L Monocytes % 8.2 Eosinophils % 0.0 Basophils % 0.1 Absolute Neutrophils 11.3 H Absolute Lymphocytes 0.8 Absolute Monocytes 1.1 Absolute Eosinophils 0.0 Absolute Basophils 0.0 Sodium 139.9 Potassium 4.9 Chloride 102 Carbon Dioxide 29 Anion Gap 9 BUN 18 Creatinine 0.65 Est GFR ( Amer) > 60 Est GFR (Non-Af Amer) > 60 Glucose 125 H Calcium 9.7 Urine Color YELLOW Urine Appearance CLEAR Urine pH 5.0 Ur Specific [place] 1.035 Urine Protein NEGATIVE Urine Glucose (UA) NEGATIVE Urine Ketones NEGATIVE Urine Blood NEGATIVE Urine Nitrite NEGATIVE Ur Leukocyte Esterase NEGATIVE Urine WBC (Auto) 1 Urine RBC (Auto) 1 Impressions: Chest X-Ray 01/18/19 08:33 IMPRESSION: ELEVATED LEFT HEMIDIAPHRAGM. BASILAR ATELECTASIS/SCARRING. Chest/Abdomen CTA 01/18/19 09:09 IMPRESSION: 1. NORMAL CTA OF THE CHEST. NO PULMONARY EMBOLI. 2. SUBOPTIMAL INSPIRATORY EFFORT. SCATTERED ATELECTASIS IN THE LUNG BASES. Assessment and Plan - Diagnosis (1) Acute and chronic respiratory failure with hypoxia Is this a current diagnosis for this admission?: Yes Plan: Resolved. Vitals WNL. CXR, CTA negative. However patient is high risk for hospital-acquired pneumonia and bacteremia due to recent hospitalization and extensive surgery. 01/18/2019. ABG: pH 7.38, PCO2 45.8, PO2 64.2 ,3 L NC. Antibiotics day 2. IV levofloxacin day 2. Continue empiric IV antibiotics, PRN BiPAP, duo nebs, blood and sputum culture. Cultures no growth so far. (2) Obesity Is this a current diagnosis for this admission?: Yes Plan: Diet and lifestyle modification recommended. (3) Leukocytosis Qualifiers: Leukocytosis type: unspecified Qualified Code(s): D72.829 - Elevated white blood cell count, unspecified Is this a current diagnosis for this admission?: Yes Plan: Broad-spectrum IV antibiotics. Follow-up culture. As per #1. (4) Hx of brain surgery Is this a current diagnosis for this admission?: Yes Plan: Recent brain surgery on 01/04/2019 for removal of frontal lobe mass. As per patient results of biopsy pending. Outpatient neurology follow-up. Patient neurosurgery follow-up. Monitor for fall, aspiration, seizure precautions. Continue wound care. (5) Hypertension Is this a current diagnosis for this admission?: Yes Plan: Controlled. Normotensive. Continue lisinopril 10 mg daily. Monitor vitals. PRN hydralazine. Adjust meds as needed. Outpatient PCP follow-up.
[2019-01-19] MEDS: CETIRIZINE 10 MG TABLET PO SCH (10:39)
[2019-01-19] MEDS: DEXAMETHASONE 4 MG TABLET PO SCH (10:39)
[2019-01-19] MEDS: DOCUSATE SODIUM 100 MG CAPSULE PO SCH ×2 (10:39→17:49)
[2019-01-19] MEDS: SENNOSIDES/DOCUSATE 8.6-50 MG 1 EACH TABLET PO SCH (10:39)
[2019-01-19] MEDS: LISINOPRIL 10 MG TABLET PO SCH (10:39)
[2019-01-19] MEDS: FAMOTIDINE 20 MG TABLET PO SCH ×2 (10:39→21:14)
[2019-01-19] MEDS: LEVOFLOXACIN 500 MG/D5W RTU 500 MG/100 ML RTUPB IV SCH (10:40)
[2019-01-19] MEDS: METOPROLOL TARTRATE 25 MG TABLET PO SCH (21:30)
[2019-01-20 05:06] LABS: ABSOLUTE LYMPHOCYTES (AUTO) 2.7 10^3/uL (0.5-4.7); ABSOLUTE MONOCYTES (AUTO) 0.8 10^3/uL (0.1-1.4); ABSOLUTE NEUT (AUTO) 5.1 10^3/uL (1.7-8.2); BASOPHILS % (AUTO) 0.3 % (0-2); EOSINOPHILS % (AUTO) 0.4 % (0-6); HEMATOCRIT 38.6 % (37.9-51.0); HEMOGLOBIN 12.9 g/dL (13.5-17.0); LYMPHOCYTES % (AUTO) 31.2 % (13-45); MEAN CORPUSCULAR HEMOGLOBIN 28.4 pg (27.0-33.4); MEAN CORPUSCULAR HGB CONC 33.4 g/dL (32.0-36.0); MEAN CORPUSCULAR VOLUME 85 fl (80-97); MONOCYTES % (AUTO) 8.8 % (3-13); PLATELET COUNT 266 10^3/uL (150-450); RED BLOOD COUNT 4.53 10^6/uL (4.35-5.55); RED CELL DISTRIBUTION WIDTH 15.3 % (11.5-14.0); SEGMENTED NEUTROPHILS % (AUTO) 59.3 % (42-78); TOTAL CELLS COUNTED % (AUTO) 100 %; WHITE BLOOD COUNT 8.6 10^3/uL (4.0-10.5)
[2019-01-20 05:24] LABS: ALANINE AMINOTRANSFERASE 92 U/L (21-72); ALBUMIN 3.6 g/dL (3.5-5.0); ALKALINE PHOSPHATASE 72 U/L (38-126); ANION GAP 8 (5-19); ASPARTATE AMINO TRANSFERASE 36 U/L (17-59); BILIRUBIN,DIRECT 0.3 mg/dL (0.0-0.4); BILIRUBIN,TOTAL 0.9 mg/dL (0.2-1.3); BLOOD UREA NITROGEN 21 mg/dL (7-20); CALCIUM 9.3 mg/dL (8.4-10.2); CARBON DIOXIDE 28 mmol/L (22-30); CHLORIDE 104 mmol/L (98-107); GLUCOSE 94 mg/dL (75-110); POTASSIUM 4.3 mmol/L (3.6-5.0)
[2019-01-20] MEDS: HEPARIN SOD (PORCINE) 5,000 UNIT/ML 1 ML VIAL SUBCUT SCH (05:57)
[2019-01-20] MEDS: IPRATROPIUM/ALBUTEROL 0.5-2.5 MG/3 ML AMPUL NEB SCH (09:02)
[2019-01-20] MEDS: METOPROLOL TARTRATE 25 MG TABLET PO SCH (09:17)
[2019-01-20] MEDS: CETIRIZINE 10 MG TABLET PO SCH (09:17)
[2019-01-20] MEDS: LISINOPRIL 10 MG TABLET PO SCH (09:17)
[2019-01-20] MEDS: LEVOFLOXACIN 500 MG/D5W RTU 500 MG/100 ML RTUPB IV SCH (09:18)
[2019-01-20] MEDS: FAMOTIDINE 20 MG TABLET PO SCH (09:18)
[2019-01-20] MEDS: DOCUSATE SODIUM 100 MG CAPSULE PO SCH (09:20)
[2019-01-20] MEDS: SENNOSIDES/DOCUSATE 8.6-50 MG 1 EACH TABLET PO SCH (09:20)
[2019-01-20 10:44] VITALS: BP 153/93
--- NOTE | 2019-01-23 13:29 | PDOC DISCHARGE SUMMARY ---
General - Admit/Disc Date/PCP Admission Date/Primary Care Provider: 01/18/19 11:43 ITA MONCADA MD Discharge Date: 01/20/19 - Discharge Diagnosis (1) Acute and chronic respiratory failure with hypoxia Is this a current diagnosis for this admission?: Yes (2) Obesity Is this a current diagnosis for this admission?: Yes (3) Leukocytosis Is this a current diagnosis for this admission?: Yes (4) Hx of brain surgery Is this a current diagnosis for this admission?: Yes (5) Hypertension Is this a current diagnosis for this admission?: Yes - Additional Information Resuscitation Status: Full Code Discharge Diet: As Tolerated Discharge Activity: Activity As Tolerated, Balance Activity w/Rest Prescriptions: Levofloxacin [Levaquin 500 mg Tablet] 500 mg PO DAILY 2 Days #2 tablet Metoprolol Tartrate [Lopressor 25 mg Tablet] 12.5 mg PO Q12 30 Days #60 tablet Home Medications: Benzonatate [Tessalon [place] 100 mg Capsule] 100 mg PO Q8HP PRN 01/18/19 Cetirizine HCl [Zyrtec] 10 mg PO DAILY 01/18/19 Dexamethasone 4 mg PO DAILY 01/18/19 Famotidine [Pepcid 20 mg Tablet] 20 mg PO BID 01/18/19 Fluticasone Propionate [Flonase Nasal [place] 50 Mcg/[place] 16 gm] 2 sprays NASL DAILY 01/18/19 Lisinopril [Prinivil 10 mg Tablet] 10 mg PO DAILY 01/18/19 Sennosides [Senna] 17.2 mg PO DAILY 01/18/19 Levofloxacin [Levaquin 500 mg Tablet] 500 mg PO DAILY 2 Days #2 tablet 01/20/19 Metoprolol Tartrate [Lopressor 25 mg Tablet] 12.5 mg PO Q12 30 Days #60 tablet 01/20/19 History of Present Illness History of Present Illness: CECI RICHMOND is a 33 year old male past medical history of hypertension, 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 She woke up with left-sided shoulder pain which she attributed to his sleeping position, took some Tylenol, went back to bed, also noted to have small shortness of breath in the morning. Shoulder pain is sharp, comes on randomly. No alleviating or exacerbating factor identified. Denies any headache, numbness tingling, vision changes, nausea vomiting, chest pain, abdominal pain, constipation or any urinary symptoms. CTA negative for any acute abnormalities. ABG positive for mild hypoxemia. CBC positive for leukocytosis. Hospital Course Hospital Course: (1) Acute and chronic respiratory failure with hypoxia Resolved. Vitals WNL. CXR, CTA negative; however patient is high risk for hospital-acquired pneumonia and bacteremia due to recent hospitalization and extensive surgery. 01/18/2019. ABG: pH 7.38, PCO2 45.8, PO2 64.2 ,3 L NC. Was started on empiric IV antibiotics, PRN BiPAP, duo nebs, blood and sputum culture. Received 3 days of IV levofloxacin and was discharged on 2 days of p.o. levofloxacin to complete total of 5 days. (2) Obesity Diet and lifestyle modification recommended. (3) Leukocytosis Resovled. WBC WNL. Received 3 days of IV levofloxacin and was discharged on 2 days of p.o. levofloxacin to complete total of 5 days. Cultures remained negative. (4) Hx of brain surgery Recent brain surgery on 01/04/2019 for removal of frontal lobe mass. As per patient results of biopsy pending. Outpatient neurology follow-up. Patient neurosurgery follow-up. Monitor for fall, aspiration, seizure precautions. Patient has a follow-up with her neurosurgeon on 01/27/2019. (5) Hypertension Controlled. Normotensive. Continue lisinopril 10 mg daily. Metoprolol 12.5 mg p.o. twice daily. Adjust meds as needed. Outpatient PCP follow-up. Physical Exam Vital Signs: Temp Pulse Resp BP Pulse Ox 97.5 F 105 H 16 153/93 H 96 01/20/19 10:43 01/20/19 10:43 01/20/19 10:43 01/20/19 10:43 01/20/19 10:43 General appearance: PRESENT: no acute distress, morbidly obese, well-developed, well-nourished Head exam: PRESENT: atraumatic, normocephalic Head Image: 1 - surgical wound, clean, no erythema, edema or discharge. Eye exam: PRESENT: conjunctiva pink, EOMI, PERRLA. ABSENT: scleral icterus Ear exam: PRESENT: normal external ear exam Mouth exam: PRESENT: moist, tongue midline Neck exam: ABSENT: carotid bruit, JVD, lymphadenopathy, thyromegaly Respiratory exam: PRESENT: clear to auscultation tracy. ABSENT: rales, rhonchi, wheezes Cardiovascular exam: PRESENT: RRR. ABSENT: diastolic murmur, rubs, systolic murmur Pulses: PRESENT: normal dorsalis pedis pul Vascular exam: PRESENT: normal capillary refill GI/Abdominal exam: PRESENT: normal bowel sounds, soft. ABSENT: distended, guarding, mass, organolmegaly, rebound, tenderness Rectal exam: PRESENT: deferred Extremities exam: PRESENT: full ROM. ABSENT: calf tenderness, clubbing, pedal edema Neurological exam: PRESENT: alert, awake, oriented to person, oriented to place, oriented to time, oriented to situation, CN II-XII grossly intact. ABSENT: motor sensory deficit Psychiatric exam: PRESENT: appropriate affect, normal mood. ABSENT: homicidal ideation, suicidal ideation Skin exam: PRESENT: dry, intact, warm. ABSENT: cyanosis, rash Results Laboratory Results: 01/20/19 04:29 01/20/19 04:29 01/18/19 10:28 Blood Blood Culture - Final NO GROWTH IN 5 DAYS 01/18/19 09:26 Blood Blood Culture - Final NO GROWTH IN 5 DAYS Impressions: Chest X-Ray 01/18/19 08:33 IMPRESSION: ELEVATED LEFT HEMIDIAPHRAGM. BASILAR ATELECTASIS/SCARRING. Chest/Abdomen CTA 01/18/19 09:09 IMPRESSION: 1. NORMAL CTA OF THE CHEST. NO PULMONARY EMBOLI. 2. SUBOPTIMAL INSPIRATORY EFFORT. SCATTERED ATELECTASIS IN THE LUNG BASES. Qualifiers - * PATIENT BEING DISCHARGED WITH ANY OF THE FOLLOWING DIAGNOSIS: No Acute Heart Failure - Is this a Heart Failure Patient?: No
== END 2019-01-20 11:14 | disposition home or self-care (01) ==
LOC: ER 08:31 → INTOOBSV 11:43 → EH 11:43 → 3N 13:16
PROVIDERS: ADMIT Internal Medicine; ATTEND Internal Medicine
DX: J96.21 Acute and chronic respiratory failure with hypoxia (principal); E66.01 Morbid (severe) obesity due to excess calories; D72.829 Elevated white blood cell count, unspecified; I10 Essential (primary) hypertension; M25.512 Pain in left shoulder; R05 Cough; Z98.890 Other specified postprocedural states; Z79.899 Other long term (current) drug therapy; Z86.03 Personal history of neoplasm of uncertain behavior
CPT/HCPCS: 93005; 99285; 96361; 96365; 36415 ×3; 87040; 82803; 85025 ×3; 87070; 80048; 80053; 81001; 85379; 71045; 71275; 93010; 36600; 94660; 94640 ×3; J1956 ×3; J1644 ×2; J3490; J7030; J7620 ×3; G0378

== ENCOUNTER → 2019-05-27 | Outpatient (CLI) | payer MEDICAID ==
[2019-05-27 16:22] LABS: ABSOLUTE EOSINOPHILS # (AUTO) 0.2 10^3/uL (0.0-0.6); ABSOLUTE LYMPHOCYTES (AUTO) 0.9 10^3/uL (0.5-4.7); ABSOLUTE MONOCYTES (AUTO) 0.4 10^3/uL (0.1-1.4); ABSOLUTE NEUT (AUTO) 3.5 10^3/uL (1.7-8.2); BASOPHILS % (AUTO) 0.8 % (0-2); EOSINOPHILS % (AUTO) 3.2 % (0-6); HEMATOCRIT 45.2 % (37.9-51.0); HEMOGLOBIN 15.6 g/dL (13.5-17.0); LYMPHOCYTES % (AUTO) 17.2 % (13-45); MEAN CORPUSCULAR HGB CONC 34.4 g/dL (32.0-36.0); MEAN CORPUSCULAR VOLUME 84 fl (80-97); MONOCYTES % (AUTO) 8.5 % (3-13); PLATELET COUNT 301 10^3/uL (150-450); RED BLOOD COUNT 5.37 10^6/uL (4.35-5.55); RED CELL DISTRIBUTION WIDTH 14.4 % (11.5-14.0); SEGMENTED NEUTROPHILS % (AUTO) 70.3 % (42-78); TOTAL CELLS COUNTED % (AUTO) 100 %
== END ==
LOC: OD 15:32
DX: C71.9 Malignant neoplasm of brain, unspecified (principal)
CPT/HCPCS: 36415; 85025

== ENCOUNTER → 2019-06-03 | Outpatient (CLI) | payer MEDICAID ==
[2019-06-03 15:26] LABS: ABSOLUTE BASOPHILS # (AUTO) 0.1 10^3/uL (0.0-0.2); ABSOLUTE EOSINOPHILS # (AUTO) 0.1 10^3/uL (0.0-0.6); ABSOLUTE LYMPHOCYTES (AUTO) 0.8 10^3/uL (0.5-4.7); ABSOLUTE MONOCYTES (AUTO) 0.3 10^3/uL (0.1-1.4); ABSOLUTE NEUT (AUTO) 3.2 10^3/uL (1.7-8.2); BASOPHILS % (AUTO) 1.3 % (0-2); EOSINOPHILS % (AUTO) 2.6 % (0-6); HEMATOCRIT 44.1 % (37.9-51.0); HEMOGLOBIN 15.1 g/dL (13.5-17.0); LYMPHOCYTES % (AUTO) 18.7 % (13-45); MEAN CORPUSCULAR HEMOGLOBIN 29.1 pg (27.0-33.4); MEAN CORPUSCULAR HGB CONC 34.3 g/dL (32.0-36.0); MEAN CORPUSCULAR VOLUME 85 fl (80-97); MONOCYTES % (AUTO) 6.8 % (3-13); PLATELET COUNT 261 10^3/uL (150-450); RED CELL DISTRIBUTION WIDTH 14.1 % (11.5-14.0); SEGMENTED NEUTROPHILS % (AUTO) 70.6 % (42-78); TOTAL CELLS COUNTED % (AUTO) 100 %; WHITE BLOOD COUNT 4.5 10^3/uL (4.0-10.5)
== END ==
LOC: OD 15:00
PROVIDERS: ATTEND Nurse Practitioner Critical Care Medicine
DX: C71.9 Malignant neoplasm of brain, unspecified (principal)
CPT/HCPCS: 36415; 85025

== ENCOUNTER → 2019-09-14 | Outpatient (CLI) | payer MEDICAID ==
[2019-09-14 15:55] LABS: ABSOLUTE EOSINOPHILS # (AUTO) 0.1 10^3/uL (0.0-0.6); ABSOLUTE LYMPHOCYTES (AUTO) 0.9 10^3/uL (0.5-4.7); ABSOLUTE MONOCYTES (AUTO) 0.3 10^3/uL (0.1-1.4); ABSOLUTE NEUT (AUTO) 3.9 10^3/uL (1.7-8.2); BASOPHILS % (AUTO) 0.7 % (0-2); EOSINOPHILS % (AUTO) 1.6 % (0-6); HEMATOCRIT 46.9 % (37.9-51.0); HEMOGLOBIN 16.1 g/dL (13.5-17.0); LYMPHOCYTES % (AUTO) 17.1 % (13-45); MEAN CORPUSCULAR HEMOGLOBIN 28.8 pg (27.0-33.4); MEAN CORPUSCULAR HGB CONC 34.2 g/dL (32.0-36.0); MEAN CORPUSCULAR VOLUME 84 fl (80-97); MONOCYTES % (AUTO) 5.8 % (3-13); PLATELET COUNT 241 10^3/uL (150-450); RED BLOOD COUNT 5.58 10^6/uL (4.35-5.55); RED CELL DISTRIBUTION WIDTH 13.8 % (11.5-14.0); SEGMENTED NEUTROPHILS % (AUTO) 74.8 % (42-78); TOTAL CELLS COUNTED % (AUTO) 100 %; WHITE BLOOD COUNT 5.2 10^3/uL (4.0-10.5)
[2019-09-14 16:09] LABS: ALBUMIN 4.3 g/dL (3.5-5.0); ALKALINE PHOSPHATASE 73 U/L (38-126); ANION GAP 10 (5-19); ASPARTATE AMINO TRANSFERASE 34 U/L (17-59); BILIRUBIN,DIRECT 0.2 mg/dL (0.0-0.4); BLOOD UREA NITROGEN 12 mg/dL (7-20); CALCIUM 9.8 mg/dL (8.4-10.2); CARBON DIOXIDE 30 mmol/L (22-30); CHLORIDE 103 mmol/L (98-107); GLUCOSE 112 mg/dL (75-110); POTASSIUM 3.7 mmol/L (3.6-5.0); TOTAL PROTEIN 7.4 g/dL (6.3-8.2)
== END ==
LOC: OD 15:15
PROVIDERS: ATTEND Nurse Practitioner Critical Care Medicine
DX: C71.9 Malignant neoplasm of brain, unspecified (principal)
CPT/HCPCS: 36415; 80053; 85025

== ENCOUNTER → 2019-09-21 | Outpatient (CLI) | payer MEDICAID ==
[2019-09-21 16:58] LABS: ABSOLUTE EOSINOPHILS # (AUTO) 0.2 10^3/uL (0.0-0.6); ABSOLUTE LYMPHOCYTES (AUTO) 0.9 10^3/uL (0.5-4.7); ABSOLUTE MONOCYTES (AUTO) 0.4 10^3/uL (0.1-1.4); ABSOLUTE NEUT (AUTO) 3.3 10^3/uL (1.7-8.2); BASOPHILS % (AUTO) 0.8 % (0-2); EOSINOPHILS % (AUTO) 3.4 % (0-6); HEMATOCRIT 46.1 % (37.9-51.0); MEAN CORPUSCULAR HEMOGLOBIN 29.3 pg (27.0-33.4); MEAN CORPUSCULAR HGB CONC 34.8 g/dL (32.0-36.0); MEAN CORPUSCULAR VOLUME 84 fl (80-97); MONOCYTES % (AUTO) 7.6 % (3-13); PLATELET COUNT 209 10^3/uL (150-450); RED BLOOD COUNT 5.48 10^6/uL (4.35-5.55); SEGMENTED NEUTROPHILS % (AUTO) 69.2 % (42-78); TOTAL CELLS COUNTED % (AUTO) 100 %; WHITE BLOOD COUNT 4.8 10^3/uL (4.0-10.5)
[2019-09-21 17:16] LABS: ALBUMIN 4.5 g/dL (3.5-5.0); ALKALINE PHOSPHATASE 70 U/L (38-126); ANION GAP 8 (5-19); ASPARTATE AMINO TRANSFERASE 41 U/L (17-59); BILIRUBIN,TOTAL 1.1 mg/dL (0.2-1.3); BLOOD UREA NITROGEN 9 mg/dL (7-20); CALCIUM 9.5 mg/dL (8.4-10.2); CARBON DIOXIDE 30 mmol/L (22-30); CHLORIDE 103 mmol/L (98-107); GLUCOSE 83 mg/dL (75-110); POTASSIUM 4.4 mmol/L (3.6-5.0); TOTAL PROTEIN 7.4 g/dL (6.3-8.2)
== END ==
LOC: OD 16:23
PROVIDERS: ATTEND Nurse Practitioner Critical Care Medicine
DX: C71.9 Malignant neoplasm of brain, unspecified (principal)
CPT/HCPCS: 36415; 80053; 85025

== ENCOUNTER → 2019-09-28 | Outpatient (CLI) | payer MEDICAID ==
[2019-09-28 16:58] LABS: ABSOLUTE BASOPHILS # (AUTO) 0.1 10^3/uL (0.0-0.2); ABSOLUTE EOSINOPHILS # (AUTO) 0.1 10^3/uL (0.0-0.6); ABSOLUTE LYMPHOCYTES (AUTO) 0.9 10^3/uL (0.5-4.7); ABSOLUTE MONOCYTES (AUTO) 0.5 10^3/uL (0.1-1.4); ABSOLUTE NEUT (AUTO) 3.4 10^3/uL (1.7-8.2); BASOPHILS % (AUTO) 1.1 % (0-2); EOSINOPHILS % (AUTO) 2.9 % (0-6); HEMATOCRIT 43.2 % (37.9-51.0); HEMOGLOBIN 15.3 g/dL (13.5-17.0); MEAN CORPUSCULAR HEMOGLOBIN 29.9 pg (27.0-33.4); MEAN CORPUSCULAR HGB CONC 35.4 g/dL (32.0-36.0); MEAN CORPUSCULAR VOLUME 85 fl (80-97); PLATELET COUNT 241 10^3/uL (150-450); RED BLOOD COUNT 5.11 10^6/uL (4.35-5.55); RED CELL DISTRIBUTION WIDTH 13.9 % (11.5-14.0); TOTAL CELLS COUNTED % (AUTO) 100 %
[2019-09-28 17:23] LABS: ALBUMIN 4.3 g/dL (3.5-5.0); ALKALINE PHOSPHATASE 67 U/L (38-126); ANION GAP 6 (5-19); ASPARTATE AMINO TRANSFERASE 37 U/L (17-59); BILIRUBIN,TOTAL 0.8 mg/dL (0.2-1.3); BLOOD UREA NITROGEN 12 mg/dL (7-20); CALCIUM 9.6 mg/dL (8.4-10.2); CARBON DIOXIDE 31 mmol/L (22-30); CHLORIDE 104 mmol/L (98-107); GLUCOSE 81 mg/dL (75-110); POTASSIUM 4.5 mmol/L (3.6-5.0); TOTAL PROTEIN 6.9 g/dL (6.3-8.2)
== END ==
LOC: OD 16:35
PROVIDERS: ATTEND Nurse Practitioner Critical Care Medicine
DX: C71.9 Malignant neoplasm of brain, unspecified (principal)
CPT/HCPCS: 36415; 80053; 85025

== ENCOUNTER → 2019-10-05 | Outpatient (CLI) | payer MEDICAID ==
[2019-10-05 15:36] LABS: ABSOLUTE BASOPHILS # (AUTO) 0.1 10^3/uL (0.0-0.2); ABSOLUTE EOSINOPHILS # (AUTO) 0.2 10^3/uL (0.0-0.6); ABSOLUTE LYMPHOCYTES (AUTO) 0.8 10^3/uL (0.5-4.7); ABSOLUTE MONOCYTES (AUTO) 0.4 10^3/uL (0.1-1.4); ABSOLUTE NEUT (AUTO) 3.1 10^3/uL (1.7-8.2); BASOPHILS % (AUTO) 1.4 % (0-2); EOSINOPHILS % (AUTO) 3.7 % (0-6); HEMOGLOBIN 15.7 g/dL (13.5-17.0); LYMPHOCYTES % (AUTO) 17.8 % (13-45); MEAN CORPUSCULAR HEMOGLOBIN 29.6 pg (27.0-33.4); MEAN CORPUSCULAR VOLUME 85 fl (80-97); MONOCYTES % (AUTO) 8.9 % (3-13); PLATELET COUNT 297 10^3/uL (150-450); RED BLOOD COUNT 5.32 10^6/uL (4.35-5.55); RED CELL DISTRIBUTION WIDTH 14.1 % (11.5-14.0); SEGMENTED NEUTROPHILS % (AUTO) 68.2 % (42-78); TOTAL CELLS COUNTED % (AUTO) 100 %; WHITE BLOOD COUNT 4.5 10^3/uL (4.0-10.5)
[2019-10-05 16:08] LABS: ALBUMIN 4.7 g/dL (3.5-5.0); ALKALINE PHOSPHATASE 65 U/L (38-126); ANION GAP 7 (5-19); ASPARTATE AMINO TRANSFERASE 34 U/L (17-59); BILIRUBIN,DIRECT 0.2 mg/dL (0.0-0.4); BILIRUBIN,TOTAL 0.9 mg/dL (0.2-1.3); BLOOD UREA NITROGEN 12 mg/dL (7-20); CALCIUM 9.7 mg/dL (8.4-10.2); CARBON DIOXIDE 30 mmol/L (22-30); CHLORIDE 105 mmol/L (98-107); GLUCOSE 87 mg/dL (75-110); POTASSIUM 4.4 mmol/L (3.6-5.0)
== END ==
LOC: OD 15:08
PROVIDERS: ATTEND Nurse Practitioner Critical Care Medicine
DX: C71.9 Malignant neoplasm of brain, unspecified (principal)
CPT/HCPCS: 36415; 80053; 85025

== ENCOUNTER → 2019-10-27 | Outpatient (CLI) | payer MEDICAID ==
[2019-10-27 12:35] LABS: ABSOLUTE LYMPHOCYTES (AUTO) 1.3 10^3/uL (0.5-4.7); ABSOLUTE MONOCYTES (AUTO) 0.6 10^3/uL (0.1-1.4); ABSOLUTE NEUT (AUTO) 6.9 10^3/uL (1.7-8.2); BASOPHILS % (AUTO) 0.5 % (0-2); EOSINOPHILS % (AUTO) 0.3 % (0-6); HEMATOCRIT 46.7 % (37.9-51.0); HEMOGLOBIN 16.2 g/dL (13.5-17.0); LYMPHOCYTES % (AUTO) 14.3 % (13-45); MEAN CORPUSCULAR HEMOGLOBIN 29.5 pg (27.0-33.4); MEAN CORPUSCULAR HGB CONC 34.7 g/dL (32.0-36.0); MEAN CORPUSCULAR VOLUME 85 fl (80-97); MONOCYTES % (AUTO) 6.6 % (3-13); PLATELET COUNT 330 10^3/uL (150-450); RED BLOOD COUNT 5.49 10^6/uL (4.35-5.55); RED CELL DISTRIBUTION WIDTH 14.5 % (11.5-14.0); SEGMENTED NEUTROPHILS % (AUTO) 78.3 % (42-78); TOTAL CELLS COUNTED % (AUTO) 100 %; WHITE BLOOD COUNT 8.8 10^3/uL (4.0-10.5)
[2019-10-27 12:55] LABS: ALBUMIN 4.6 g/dL (3.5-5.0); ALKALINE PHOSPHATASE 62 U/L (38-126); ANION GAP 10 (5-19); ASPARTATE AMINO TRANSFERASE 23 U/L (17-59); BILIRUBIN,TOTAL 0.6 mg/dL (0.2-1.3); BLOOD UREA NITROGEN 14 mg/dL (7-20); CALCIUM 9.7 mg/dL (8.4-10.2); CARBON DIOXIDE 28 mmol/L (22-30); CHLORIDE 101 mmol/L (98-107); GLUCOSE 115 mg/dL (75-110); POTASSIUM 3.5 mmol/L (3.6-5.0); TOTAL PROTEIN 7.2 g/dL (6.3-8.2)
== END ==
LOC: OD 11:41
PROVIDERS: ATTEND Nurse Practitioner Critical Care Medicine
DX: C71.9 Malignant neoplasm of brain, unspecified (principal)
CPT/HCPCS: 36415; 80053; 85025

== ENCOUNTER 2020-07-18 17:13 | Emergency (ER) | payer MEDICAID ==
--- NOTE | 2020-07-18 18:51 | ER Document Report ---
ED GI/ - General Chief Complaint: Other Stated Complaint: ABDOMINAL PAIN Time Seen by Provider: 07/18/20 17:45 Primary Care Provider: LARY PENA NP [Primary Care Provider] - Follow up as needed Mode of Arrival: Medic Information source: Relative - Cannot obtain history due to: Other - Patient unable to speak due to brain tumor. History that was obtained was obtained from TRAVEL OUTSIDE OF THE [place] IN LAST 30 DAYS: No - HPI Patient complains to provider of: Feeding tube problem Notes: 07/18/20 18:49 Patient has a history of brain cancer and is currently on hospice care. The patient had a G-tube placed 2 days before May. Apparently he had pulled out his original feeding tube and a Richards tube was placed. states that around 2 AM he pulled out the Richards tube. His hospice nurse was unable to replace his G-tube so he was sent to the hospital. The denies any fevers. She denies any vomiting or diarrhea. She states that they are only here in order to have his G-tube replaced. - Related Data Allergies/Adverse Reactions: No Known Allergies Allergy (Unverified 01/02/19 14:50) Home Medications: Keppra, Dilantine, Topomax, Losartan, Dexamethasone Past Medical History - Social History Smoking Status: Unknown if Ever Smoked Frequency of alcohol use: None Drug Abuse: None Family History: Reviewed & Not Pertinent - Past Medical History Cardiac Medical History: Reports: Hx Hypertension Neurological Medical History: Reports: Hx Seizures Renal/ Medical History: Denies: Hx Peritoneal Dialysis Past Surgical History: Reports: Hx Neurologic Surgery - Removal of large right frontal brain mass on 01/04/2019 Review of Systems - Review of Systems -: Yes ROS unobtainable due to patient's medical condition Physical Exam - Vital signs Vitals: Temp BP Pulse Ox 98.4 F 116/90 H 97 07/18/20 17:17 07/18/20 17:17 07/18/20 17:17 - Notes Notes: GENERAL: Awake, noncommunicative HEAD: atraumatic EYES: conjunctiva pink without discharge, no external redness or swelling. EARS: no external swelling, no external redness NOSE: atraumatic, no external swelling MOUTH/THROAT: mucous membranes moist and pink, posterior pharynx without erythema, swelling, exudate. No trismus or drooling. NECK: soft, supple, full range of motion, no meningismus. CHEST: no distress, lungs clear and equal throughout. No wheezing, rales, rhonchi. CARDIAC: regular rate and rhythm, no murmur ABDOMEN: Soft, nontender to palpation. Bowel sounds present. Scabbed over G- tube site with no surrounding erythema. EXTREMITIES: No swelling NEURO: Awake, does not follow commands. Patient was noted to be moving upper extremities. SKIN: pink, warm, dry, no rash. Course - Re-evaluation Re-evalutation: 07/18/20 18:51 Case was discussed with Dr. Rodrigez of general surgery. Informed him that I was not successful at replacing the G-tube on initial attempt and did not want to be too aggressive. He recommended that I use a pair of Xiomy's to dilate the G- tube track and attempt to place a G-tube after doing this. Skin was cleaned with Betadine. I was able to dilate the wound tract without difficulty using Kellys and was able to place a 14 [place] feeding tube in place. G-tube placement x-ray has been ordered. Patient tolerated this well without complication. We'll continue to monitor. 07/18/20 18:53 07/18/20 19:30 Patient resting comfortably this time. I have gone over the results with the . Questions been answered. Will discharge home. Patient is nontoxic-appearing with stable vitals. Patient has a history of brain cancer and is currently on hospice. The patient had a feeding tube placed 2 days after Thanksgiving. He had pulled that feeding tube out and had had a Richards catheter in place for a G-tube. Apparently he pulled his G-tube out around 2 AM. His hospice nurse was unable to insert a new feeding tube so he came to the emergency department in order to have this done. But no fever, vomiting. The denies any other complaints and states that she would just like to have the feeding tube placed. A 14 [place] feeding tube was placed. X- ray was obtained following placement showing contrast in the stomach and proximal small bowel. They were unable to visualize the gastrostomy tube. Obviously the contrast was injected through the gastrostomy tube and there is contrast within the stomach and proximal small bowel, therefore it is in proper placement. Patient will be discharged back home. Follow-up for increased pain, fever, persistent vomiting, or for any further concerns. The patient's emergency department workup and current diagnosis were explained to the patient and or family. Follow-up instructions were provided. Medicatio ns if prescribed were discussed. Instructions for when to return to the emergency department including specific worrisome symptoms were discussed with the patient and/or family. - Vital Signs Vital signs: Temp Pulse Resp BP Pulse Ox 98.4 F 114/86 H 96 07/18/20 17:17 07/18/20 18:00 07/18/20 18:00 - Laboratory Results Critical Laboratory Results Reviewed: No Critical Results - Radiology Results Critical Radiology Results Reviewed: No Critical Results Discharge - Discharge Clinical Impression: Complaint associated with gastric tube Condition: Stable Disposition: HOME, SELF-CARE Instructions: Transdermal Gastric Tube Placement ([facility]) Additional Instructions: Follow-up with his doctor as needed. Follow-up sooner for fever, vomiting, any further concerns. A 14 [place] feeding tube was placed in the ER this evening. Referrals: LARY PENA ADULT LITERACY INSTRUCTOR [Primary Care Provider] - Follow up as needed
--- NOTE | 2020-07-18 19:21 | RADIOLOGY REPORT (SQ) ---
EXAM DESCRIPTION: KUB/ABDOMEN (SINGLE VIEW) IMAGES COMPLETED DATE/TIME: 07/18/2020 6:58 pm REASON FOR STUDY: G-tube placement with contrast COMPARISON: None. NUMBER OF VIEWS: One view. TECHNIQUE: Supine radiographic image of the abdomen acquired. LIMITATIONS: None. FINDINGS: Contrast is present in the stomach and proximal small bowel. A gastrostomy tube is not id entified. IMPRESSION: Gastrostomy tube is not identified. There is contrast in the stomach and proximal small bowel. TECHNICAL DOCUMENTATION: JOB ID: [id number] 2010 [employer]- All Rights Reserved Reading location - IP/workstation name: [email or web address]
[2020-07-18 20:38] VITALS: BP 111/86
== END 2020-07-18 20:38 | disposition home or self-care (01) ==
LOC: ER 17:13
DX: Z43.1 Encounter for attention to gastrostomy (principal); C71.9 Malignant neoplasm of brain, unspecified; Z51.5 Encounter for palliative care; I10 Essential (primary) hypertension; R56.9 Unspecified convulsions
CPT/HCPCS: 74018; 99283